=== PATIENT | male | born 1960 | race Caucasian/White ===

== ENCOUNTER → 2017-06-11 | Day surgery (SDC) | payer BC, MEDICARE ==
[~2017-06-11] MED LIST: ACET500T68 PO; ACLI400A2 IH; ALKA-SELTZER B324 MG PO; ALLO100T PO; APIX5TAB PO; BUDE10.22 IH; CALC0.25 PO; CALC3.7S5 NS; CEPH-264 PO; CHOL100013 PO; CIPR250T30 PO; CIPR500T94 PO; DIPH25TA24 PO; ERGO500027 PO; ESZO3TAB28 PO; FOLI0.8T3 PO; HYDR12.53 PO; HYOS0.1265 SL; INFL100V IV; IRON18TA PO; LANT1000 PO; LIDOCAINE 2% PF Vial for OR 5 ML VIAL. ONE; MELA1TAB11 PO; MELA5TAB PO; MYCO500T PO; OMEP20CA5 PO; OMEP20TA8 PO; POTA10TA17 PO; PRED-220 PO; PROAIR HFA8.5 GM INH; PROPOFOL 40 ML IV ONE; SILD50TA PO; SODI1TAB11 PO; SODIUM BICARBONATE; SUCR500T PO; SYMBICORT INH; TAMS0.4C97 PO; [UNRECOGNIZED DRUG - OTHER] PO
[2017-06-11] MEDS: IV RINGERS,LACTATED 1000ML 1,000 ML IV SCH ×2 (07:00→13:10)
[2017-06-11 14:23] VITALS: BP 118/76
--- NOTE | 2017-06-12 10:58 | HP ---
ADMIT DATE: 06/11/2017 REFERRING PHYSICIAN: PATRICIA Murillo REASON FOR ADMISSION: Crohn's colitis for surveillance of esophageal varices. HISTORY OF PRESENT ILLNESS: This is a 56-year-old male with past medical history significant for kidney transplantation, sarcoidosis as well as Crohn's colitis, is seen for surveillance. He has been on Remicade with good control of his diarrhea. He also takes prednisone and CellCept. In addition, he has developed cirrhosis, is followed by Dr. Pantoja at [facility] and is here for esophagoscopy for varices surveillance. He is otherwise without additional complaints. PAST MEDICAL HISTORY: Status post kidney transplantation, sarcoidosis, renal insufficiency, status post transplantation. ALLERGIES: BETA BLOCKERS. MEDICATIONS: Include Tudorza, ProAir, Symbicort, calcitonin, Lunesta, Remicade, CellCept, Viagra. PAST SURGICAL HISTORY: Status post kidney transplant, tonsillectomy. REVIEW OF SYSTEMS: Per records. FAMILY HISTORY: Significant for colon cancer with his mother. PHYSICAL EXAMINATION: GENERAL: Revealed a well-nourished, well-developed, female. He is alert, conversant, in no acute distress. VITAL SIGNS: Temperature is 98.1, pulse is 100, respiratory rate is 20. HEENT: Normocephalic and atraumatic head. Pupils and extraocular muscles not tested. Sclerae anicteric. NECK: Supple. LUNGS: Clear. CARDIOVASCULAR: Reveals S1, S2 without S3, S4 or appreciable murmur. ABDOMEN: Soft abdomen, normal bowel sounds, without appreciable hepatosplenomegaly. EXTREMITIES: Reveals no cyanosis, clubbing or edema. IMPRESSION AND PLAN: 1. Crohn's colitis, on Remicade therapy. We will recommend surveillance biopsies with colonoscopy. 2. Cirrhosis with sarcoidosis. We will recommend esophagogastroduodenoscopy with varices surveillance. DIGNA WEINSTEIN MD DR: JONAS/danica JOB#: [id number] / [id number]
--- NOTE | 2017-06-12 11:02 | PATHOLOGY ---
PATHOLOGY REPORT * * * * * * * * FINAL DIAGNOSIS: A. Colon, right, biopsy: - Mild glandular architectural distortion. - Acute cryptitis, focal, mild. B. Colon, left, biopsy: - Mild glandular architectural distortion. - Mild hyperplastic changes. C. Colon, transverse, biopsy: - Mild glandular architectural distortion. - Mild hyperplastic changes. (Please see comment) COMMENT: The findings in part A of this case could be consistent with an acute self-limited colitis. No specific evidence of chronic inflammatory bowel disease is seen in any of the biopsies. (SK:farzaneh; 06/12/2017) REPORT ELECTRONICALLY SIGNED BY: Kike Fowler M.D. DATE/TIME: 06/12/2017 11:01 * * * * * * * * GROSS PATHOLOGY: A. Received in formalin labeled "Subha Shaw, right colon" is a 1.5 x 0.5 x 0.1 cm aggregate of pink-boles soft tissue fragments. The specimen is submitted in cassette A1. B. Received in formalin labeled "Subha Shaw, left colon" is a 1.6 x 0.6 x 0.1 cm aggregate of pink-boles soft tissue fragments. The specimen is submitted in cassette B1. C. Received in formalin labeled "Subha Shaw, transverse colon" is a 1.0 x 0.6 x 0.2 cm aggregate of pink-boles soft tissue fragments. The specimen is submitted in cassette C1. ([facility]; 06/11/2017) INITIAL CPT CODE(S): A; 91598 B; 72221 C; 12863 Professional services performed [place] [facility] [address] Technical services performed by [facility] at [address] [place] [address] [address] [address]. SPECIMEN(S) RECEIVED: A.Right colon B.Left colon C.Transverse colon CLINICAL HISTORY: Gastritis, reflux PATIENT: SUBHA SHAW /AGE: 1107/28/1960 (Age: 56) PATIENT #: [id number] ALT CASE #: SPECIMEN COLLECTION DATE: 06/11/2017 SPECIMEN RECEIVED DATE: 06/11/2017 [facility] - [address] [place] [address] - PHONE: [phone] * * * END OF REPORT * * *
== END | disposition home or self-care (01) ==
LOC: ENDOS 12:14
PROVIDERS: ATTEND Internal Medicine Gastroenterology
DX: K50.10 Crohn's disease of large intestine without complications (principal); K64.0 First degree hemorrhoids; K63.89 Other specified diseases of intestine; K57.30 Diverticulosis of large intestine without perforation or abscess without bleeding; K74.60 Unspecified cirrhosis of liver; I85.10 Secondary esophageal varices without bleeding; K29.50 Unspecified chronic gastritis without bleeding; J44.9 Chronic obstructive pulmonary disease, unspecified; K21.9 Gastro-esophageal reflux disease without esophagitis; E78.00 Pure hypercholesterolemia, unspecified; F32.9 Major depressive disorder, single episode, unspecified; D64.9 Anemia, unspecified; Z85.528 Personal history of other malignant neoplasm of kidney; Z86.69 Personal history of other diseases of the nervous system and sense organs; Z87.01 Personal history of pneumonia (recurrent); Z86.39 Personal history of other endocrine, nutritional and metabolic disease; Z87.442 Personal history of urinary calculi; Z88.8 Allergy status to other drugs, medicaments and biological substances
CPT/HCPCS: 43235; 45380; 88305; J2704; J2001